=== PATIENT | male | born 1980 | race Caucasian/White ===

== ENCOUNTER 2023-04-17 19:52 | Observation (INO) ==
[2023-04-17] MEDS ORDERED: Senna TAB 8.6 mg TAB PO PRN (21:16)
[2023-04-17] MEDS ORDERED: Nicotine GUM 2MG FRUIT FLAVOR PO PRN (21:20)
[2023-04-17 21:46] LABS: ABS Basophils 0.1 10^3/uL (0.0-0.1); ABS Eosinophils 0.3 10^3/uL (0.0-0.5); ABS Lymphocytes 4.4 10^3/uL (1.0-4.8); ABS Monocytes 0.9 10^3/uL (0.0-1.1); ABS Neutrophils 4.6 10^3/uL (1.5-7.6); ABS Nucleated RBC 0.01 10^3/ul; Hemoglobin 13.7 g/dL (13.2-16.3); Lymphocyte % 42.4 %; Mean Corpuscular Hgb Conc 34.2 g/dL (31-36); Mean Corpuscular Volume 84.7 fL (80-97); Platelet Count 288 10^3/uL (150-450); Red Blood Count 4.72 10^6/uL (4.06-5.63); Red Cell Distribution Width 14.1 % (12-17); White Blood Count 10.3 10^3/uL (3.6-10.2)
[2023-04-17 22:19] LABS: Albumin/Globulin Ratio 1.5 (1-3); Creatinine, Serum 1.03 mg/dL (0.67-1.17); Globulin 2.6 g/dL (2-4); Magnesium 1.8 mg/dL (1.9-2.7); Phosphorus 3.3 mg/dL (2.5-5.0); Potassium 3.4 mmol/L (3.5-5.0); Total Bilirubin 0.7 mg/dL (0.2-1.0); Total Protein 6.6 g/dL (6.4-8.9); eGFR CKD-EPI 93.6 (>60)
[2023-04-17] MEDS ORDERED: Magnesium Sulfate 2 gm BAG 2 GM/50 ML BAG IVPB ONE (22:57)
[2023-04-17] MEDS ORDERED: CMCS: Doxepin 25 mg CAP (NF) PO SCH (23:00)
[2023-04-17 23:23] LABS: TSH Ultra Thyroid Stim Horm 1.08 mcIU/mL (0.34-5.60)
[2023-04-17 23:25] LABS: Free T4 0.95 ng/dL (0.61-1.12)
[2023-04-17] MEDS: Potassium Chlor 20 meq TAB.ER PO SCH (23:57)
[2023-04-18 00:39] LABS: Urine Benzodiazepine Screen None Detected (None Detect); Urine Cannabinoids Screen Presumptive Positive (None Detect); Urine Opiates Screen None Detected (None Detect)
[2023-04-18 06:14] LABS: ABS Basophils 0.1 10^3/uL (0.0-0.1); ABS Eosinophils 0.4 10^3/uL (0.0-0.5); ABS Lymphocytes 3.9 10^3/uL (1.0-4.8); ABS Monocytes 0.8 10^3/uL (0.0-1.1); ABS Neutrophils 5.5 10^3/uL (1.5-7.6); ABS Nucleated RBC 0.01 10^3/ul; Hematocrit 39.4 % (38-53); Hemoglobin 13.3 g/dL (13.2-16.3); Lymphocyte % 36.3 %; Mean Corpuscular Hemoglobin 28.5 pg (27-33); Mean Corpuscular Hgb Conc 33.8 g/dL (31-36); Mean Corpuscular Volume 84.3 fL (80-97); Nucleated Red Blood Cells % 0.1 /100 WBC (0.0-0.4); Platelet Count 271 10^3/uL (150-450); Red Blood Count 4.67 10^6/uL (4.06-5.63); White Blood Count 10.7 10^3/uL (3.6-10.2)
[2023-04-18 06:18] LABS: INR 1.09 (0.88-1.18)
[2023-04-18 06:37] LABS: Albumin 3.8 g/dL (3.2-5.2); Albumin/Globulin Ratio 1.5 (1-3); C Reactive Protein 19.05 mg/L (<8.01); Calcium 8.9 mg/dL (8.6-10.3); Globulin 2.5 g/dL (2-4); Magnesium 2.2 mg/dL (1.9-2.7); Potassium 3.8 mmol/L (3.5-5.0); Total Bilirubin 0.5 mg/dL (0.2-1.0); Total Protein 6.3 g/dL (6.4-8.9)
[2023-04-18] MEDS ORDERED: Nicotine PATCH 14 MG/24 HR PATCH TRANSDERM SCH (09:00)
[2023-04-18] MEDS: Potassium Chlor 20 meq TAB.ER PO SCH (09:24)
[2023-04-18] MEDS: Nicotine PATCH 21 MG/24 HR PATCH TRANSDERM SCH (09:25)
[2023-04-18] MEDS: Polyethylene Glycol 3350 17 GM PACKET PO PRN (17:15)
[2023-04-19 06:47] LABS: ABS Basophils 0.1 10^3/uL (0.0-0.1); ABS Eosinophils 0.5 10^3/uL (0.0-0.5); ABS Lymphocytes 3.6 10^3/uL (1.0-4.8); ABS Monocytes 0.5 10^3/uL (0.0-1.1); ABS Neutrophils 3.7 10^3/uL (1.5-7.6); Eosinophil % 6.3 %; Hematocrit 38.6 % (38-53); Hemoglobin 13.2 g/dL (13.2-16.3); Lymphocyte % 42.2 %; Mean Corpuscular Hemoglobin 29.1 pg (27-33); Mean Corpuscular Volume 85.3 fL (80-97); Platelet Count 285 10^3/uL (150-450); Red Blood Count 4.53 10^6/uL (4.06-5.63); Red Cell Distribution Width 13.5 % (12-17); White Blood Count 8.5 10^3/uL (3.6-10.2)
[2023-04-19 07:13] LABS: Calcium 8.7 mg/dL (8.6-10.3); Creatinine, Serum 0.93 mg/dL (0.67-1.17); Potassium 4.1 mmol/L (3.5-5.0); eGFR CKD-EPI 105.8 (>60)
[2023-04-19] MEDS: Nicotine PATCH 21 MG/24 HR PATCH TRANSDERM SCH (09:35)
[2023-04-19] MEDS: Polyethylene Glycol 3350 17 GM PACKET PO PRN (09:35)
[2023-04-19 10:04] VITALS: BP 138/77
== END 2023-04-19 13:00 | disposition home or self-care (01) ==
LOC: MED 19:52 → INTOOBSV 19:52 → SUATTDRO 19:52
PROVIDERS: ADMIT Internal Medicine; ATTEND Internal Medicine